=== PATIENT | female | born 1985 | race Caucasian/White ===

== ENCOUNTER 2017-09-04 10:42 | Inpatient (IN) | payer OTHER ==
[~2017-09-04] VITALS: Ht 154.9 cm; Wt 71.2 kg
[2017-09-04] MEDS ORDERED: PRENATAL TABLE1 EAC1 PO (12:24)
== END 2017-09-07 09:53 | DRG 781 ==
LOC: OB/GYN 10:42 → LDR 10:42 → OB/GYN 09-05 08:33
PROC: BY4CZZZ Ultrasonography of Second Trimester, Single Fetus (ICD-10-PCS; principal; 2017-09-04)
PROC: BU4CZZZ Ultrasonography of Uterus and Ovaries (ICD-10-PCS; 2017-09-04)
PROC: 4A1HXCZ Monitoring of Products of Conception, Cardiac Rate, External Approach (ICD-10-PCS; 2017-09-04)
PROC: BU4CZZZ Ultrasonography of Uterus and Ovaries (ICD-10-PCS; 2017-09-06)
DX: O34.32 Maternal care for cervical incompetence, second trimester (principal); O99.012 Anemia complicating pregnancy, second trimester; Z3A.16 16 weeks gestation of pregnancy

== ENCOUNTER 2018-01-30 00:07 | Outpatient (CLI) | payer OTHER ==
[~2018-01-30 00:07] MED LIST: PRENATAL TABLE1 EAC1 PO
== END 2018-01-30 09:03 | disposition home or self-care (01) ==
LOC: OBS/DEL 00:07
DX: O46.8X3 Other antepartum hemorrhage, third trimester (principal); O34.43 Maternal care for other abnormalities of cervix, third trimester; N84.0 Polyp of corpus uteri; Z34.03 Encounter for supervision of normal first pregnancy, third trimester

== ENCOUNTER 2018-02-06 09:32 | Inpatient (IN) | payer OTHER ==
[~2018-02-06] VITALS: Ht 154.9 cm; Wt 2.7 kg
== END 2018-02-10 10:14 | DRG 765 ==
LOC: LDR 09:32 → OB/GYN 02-07 16:36
PROVIDERS: Obstetrics & Gynecology
PROC: 3E0P7VZ Introduction of Hormone into Female Reproductive, Via Natural or Artificial Opening (ICD-10-PCS; 2018-02-07)
PROC: 3E033VJ Introduction of Other Hormone into Peripheral Vein, Percutaneous Approach (ICD-10-PCS; 2018-02-07)
PROC: 4A033R1 Measurement of Arterial Saturation, Peripheral, Percutaneous Approach (ICD-10-PCS; 2018-02-07)
PROC: 4A1HXCZ Monitoring of Products of Conception, Cardiac Rate, External Approach (ICD-10-PCS; 2018-02-07)
PROC: 10D00Z1 Extraction of Products of Conception, Low, Open Approach (ICD-10-PCS; principal; 2018-02-07 14:00)
DX: O62.0 Primary inadequate contractions (principal); O41.03X0 Oligohydramnios, third trimester, not applicable or unspecified; Z3A.38 38 weeks gestation of pregnancy; Z37.0 Single live birth